=== PATIENT | male | born 1935 | race Caucasian/White ===

== ENCOUNTER → 2018-10-07 | Outpatient (CLI) | payer MEDICARE, OTHER ==
[~2018-10-07] MED LIST: HOLD METFORMIN - RECEIVED CONTRAST 20 ML VIAL IV SCH; IOHEXOL 350 MG/ML 100 ML (OMNIPAQUE 350) VIAL IV ONE; NS 100 ML (IVPB) BAG IV ONE; RT-ALBUTEROL SULF 2.5 MG/3 ML PRE-MIX VIAL INH ONE
[2018-10-07 09:26] LABS: BUN/CREATININE RATIO 14; CREATININE SERUM 1.09 MG/DL (0.60-1.30); GFR ESTIMATED > 60
--- NOTE | 2018-10-07 11:56 | Diagnostic Imaging Report ---
PROCEDURE: CT chest with contrast only. TECHNIQUE: Multiple contiguous axial images were obtained through the chest after administration of intravenous contrast. Auto Exposure Controls were utilized during the CT exam to meet ALARA standards for radiation dose reduction. INDICATION: Shortness of breath on exertion and productive cough. COMPARISON: No prior studies are available for comparison. FINDINGS: Postop changes of median sternotomy are noted. No axillary lymphadenopathy is seen. Mildly prominent mediastinal lymph nodes are present. Right paratracheal node measures 1.4 x 1.7 cm. No hilar lymphadenopathy is seen. Pulmonary arterial system does appear to be somewhat dilated. This could be on the basis of pulmonary arterial hypertension. Coronary arterial calcifications are noted. There is no pericardial or pleural fluid identified. Parenchymal evaluation does show some scarring versus infiltrate in the posterior right upper lobe. There is also some infiltrate in the left lower lobe suggestive of pneumonia. Right lower lobe appears to be clear. The upper abdomen is unremarkable. IMPRESSION: 1. Left lower lobe infiltrate suggestive of pneumonia. There is minimal infiltrate versus scarring or atelectasis in the posterior right upper lobe. Prominent lymph node in the mediastinum is seen which could be reactive. 2. Pulmonary arterial dilatation, perhaps on the basis of pulmonary hypertension. Dictated by: Dictated on workstation # [id number]
== END ==
LOC: RAD 08:50
PROVIDERS: ATTEND Nurse Practitioner Family
DX: J45.909 Unspecified asthma, uncomplicated (principal); I28.8 Other diseases of pulmonary vessels; Z98.890 Other specified postprocedural states
CPT/HCPCS: 36415; 71260; 82565; 84520; 94060; 94726; 94729

== ENCOUNTER → 2018-10-15 | Outpatient (CLI) | payer MEDICARE, OTHER ==
[~2018-10-15] MED LIST changes: +EZET10TA5 PO; +FEXO-46 PO; +FLUT1BLS IH; -HOLD METFORMIN - RECEIVED CONTRAST 20 ML VIAL IV SCH; -IOHEXOL 350 MG/ML 100 ML (OMNIPAQUE 350) VIAL IV ONE; +LEVO150T6 PO; +METO-370 PO; +MONT10TA24 PO; -NS 100 ML (IVPB) BAG IV ONE; +OMEP40CA36 PO; -RT-ALBUTEROL SULF 2.5 MG/3 ML PRE-MIX VIAL INH ONE
[2018-10-15 14:45] LABS: BASOPHILS # (AUTO) 0.1 10^3/uL (0.0-0.1); BASOPHILS % (AUTO) 1 % (0-10); EOSINOPHILS # (AUTO) 0.8 10^3/uL (0.0-0.3); EOSINOPHILS % (AUTO) 7 % (0-10); HEMATOCRIT 43 % (40-54); HEMOGLOBIN 14.6 G/DL (13.3-17.7); LYMPHOCYTES % (AUTO) 18 % (12-44); MEAN CORPUSCULAR HEMOGLOBIN 32 PG (25-34); MEAN CORPUSCULAR HGB CONC 34 G/DL (32-36); MEAN CORPUSCULAR VOLUME 94 FL (80-99); MEAN PLATELET VOLUME 8.8 FL (7.4-10.4); MONOCYTES # (AUTO) 0.9 X 10^3 (0.0-1.0); MONOCYTES % (AUTO) 8 % (0-12); NEUTROPHILS # (AUTO) 7.1 X 10^3 (1.8-7.8); NEUTROPHILS % (AUTO) 66 % (42-75); PLATELET COUNT 275 10^3/uL (130-400); RED CELL DISTRIBUTION WIDTH 13.9 % (10.0-14.5); WHITE BLOOD COUNT 10.8 10^3/uL (4.3-11.0)
== END ==
LOC: LAB 14:29
PROVIDERS: ATTEND Nurse Practitioner Family
DX: J45.909 Unspecified asthma, uncomplicated (principal); J47.9 Bronchiectasis, uncomplicated; J18.9 Pneumonia, unspecified organism; F17.211 Nicotine dependence, cigarettes, in remission
CPT/HCPCS: 36415; 85025

== ENCOUNTER 2018-10-19 06:26 | Outpatient (CLI) | payer MEDICARE, OTHER ==
[~2018-10-19] VITALS: Ht 175.3 cm; Wt 78.5 kg
[2018-10-19] MEDS ORDERED: OMEP40CA36 PO (11:10)
[2018-10-19] MEDS ORDERED: METO-370 PO (11:10)
[2018-10-19] MEDS ORDERED: FLUT1BLS IH (11:10)
[2018-10-19] MEDS ORDERED: LEVO150T6 PO (11:10)
[2018-10-19] MEDS ORDERED: FEXO-46 PO (11:10)
[2018-10-19] MEDS ORDERED: MONT10TA24 PO (11:10)
[2018-10-19] MEDS ORDERED: EZET10TA5 PO (11:10)
== END 2018-10-19 11:12 | disposition home or self-care (01) ==
LOC: PREOP 06:26
PROVIDERS: ATTEND Internal Medicine Critical Care Medicine
DX: Z01.818 Encounter for other preprocedural examination (principal)

== ENCOUNTER → 2019-01-19 | Outpatient (CLI) | payer MEDICARE, OTHER ==
[~2019-01-19] MED LIST changes: +CATHETER FLUSH 10 ML SYR IV PRN; +HOLD METFORMIN - RECEIVED CONTRAST 20 ML VIAL IV SCH; +IOHEXOL 350 MG/ML 100 ML (OMNIPAQUE 350) VIAL IV ONE; +NS 100 ML (IVPB) BAG IV ONE
[2019-01-19 11:34] LABS: BUN/CREATININE RATIO 11; CREATININE SERUM 1.07 MG/DL (0.60-1.30)
[2019-01-19 11:35] LABS: GFR ESTIMATED > 60
--- NOTE | 2019-01-19 16:01 | Diagnostic Imaging Report ---
PROCEDURE: CT chest with contrast only. TECHNIQUE: Multiple contiguous axial images were obtained through the chest after administration of intravenous contrast. Auto Exposure Controls were utilized during the CT exam to meet ALARA standards for radiation dose reduction. DATE: January 19, 2019. COMPARISON: Chest radiograph October 22, 2018. CT chest October 07, 2018. INDICATION: 83-year-old male, cough. History of pneumonia. Follow-up exam. FINDINGS: There is a pleurally based right upper lobe pulmonary nodule measuring 16 x 6 mm in size on axial image 20. This is a new finding since prior CT chest. There is also a peripheral and/or pleurally-based spiculated appearing right upper lobe pulmonary nodule on axial image 62 which measures 12 mm in size. This is also new since prior CT chest exam of October 07, 2018. There is pleural-based nodularity in the right middle lobe on axial image 86 which is also an interval change. There are predominantly wedge-shaped areas of consolidation in the right middle lobe with associated volume loss consistent with atelectasis and/or scarring. This is also present previously. There are prominent reticulonodular opacities in the lingula and left lower lobe on axial image 104 and adjacent sequential images. This is fairly similar in appearance to prior CT chest of October 07, 2018. There is nonspecific left lower lobe bronchial wall thickening. There is no peripheral honeycombing. There is no pneumothorax. There is no sizable pleural effusion. There is nonspecific small amount of dependent material within the trachea which may relate to mucus or debris. There is abnormally dilated main pulmonary artery diameter measuring up to 3.1 cm in diameter suggestive of pulmonary artery hypertension. There is no identified central pulmonary embolus. There are coronary artery calcifications and additional areas of atherosclerotic disease. There is no pericardial effusion. There is a right paratracheal lymph node on axial image 57 which measures 8 mm in short axis. There are subcentimeter short axis bilateral hilar lymph nodes. The right paratracheal lymph nodes on prior study have decreased in size. There is no abnormally enlarged axillary lymph node. There is a low-attenuation 6 mm right renal lesion on axial image 150 which is too small to characterize. Additional evaluation of the imaged portions of the upper abdomen is unremarkable. There are multilevel degenerative changes of the spine. There are median sternotomy wires. IMPRESSION: CT CHEST. 1. Persistent prominent reticulonodular opacities in the lingula and left lower lobe with unchanged appearance since October 07, 2018. These potentially could relate to infectious or inflammatory etiology. Malignant etiology considered significantly less likely. 2. New pleurally based and/or peripheral nodules in the right upper lobe as well as a peripheral area of pleural-based nodularity in the right middle lobe since October 07, 2018. The quick interval development would suggest against sites of primary malignancy although metastatic disease is in the differential diagnosis. The pleural-based abnormality would be unusual for infectious etiology. PET/CT and/or biopsy should be considered. 3. Findings suggesting pulmonary artery hypertension. 4. No current pathologically enlarged lymph node in the chest. Dictated by: Dictated on workstation # [id number]
== END ==
LOC: RAD 11:06
PROVIDERS: ATTEND Nurse Practitioner Family
DX: J45.909 Unspecified asthma, uncomplicated (principal); J47.9 Bronchiectasis, uncomplicated; J18.9 Pneumonia, unspecified organism; F17.211 Nicotine dependence, cigarettes, in remission; R91.8 Other nonspecific abnormal finding of lung field; Z98.890 Other specified postprocedural states
CPT/HCPCS: 36415; 71260; 82565; 84520

== ENCOUNTER → 2019-02-02 | Outpatient (CLI) | payer MEDICARE, OTHER ==
[~2019-02-02] MED LIST changes: -CATHETER FLUSH 10 ML SYR IV PRN; -HOLD METFORMIN - RECEIVED CONTRAST 20 ML VIAL IV SCH; -IOHEXOL 350 MG/ML 100 ML (OMNIPAQUE 350) VIAL IV ONE; -NS 100 ML (IVPB) BAG IV ONE
--- NOTE | 2019-02-02 14:18 | Diagnostic Imaging Report ---
INDICATION: Peripheral nodular opacities noted in the right upper and right middle lobes on prior CT chest. Study is performed for further evaluation. TECHNIQUE: Serum blood glucose level at the time of injection was 81 mg/dL. Patient was administered 12 mCi F-18 FDG intravenously in the right wrist, and PET imaging was performed from the top of the skull to mid thighs. Noncontrast CT was also performed for attenuation correction and anatomic correlation. COMPARISON: No prior PET study is available for comparison. Comparison is made with recent CT chest from 01/19/2019. FINDINGS: There is symmetric activity throughout the brain. Physiologic activity within the soft tissues of the neck is identified. The areas of pleural/subpleural density noted on recent CT chest in the right upper and right middle lobe do not demonstrate FDG avidity. Low-level activity in a right paratracheal lymph node is identified with SUV max of approximately 3.5. Short axis measurement is approximately 12 mm. This may be reactive. No hilar hypermetabolism is seen. No pulmonary parenchymal hypermetabolism is identified. Abdomen and pelvis demonstrate physiologic activity throughout the GI and tracts. No suspicious hypermetabolism is detected. IMPRESSION: Essentially unremarkable PET/CT study. The subpleural/pleural-based densities noted on recent CT chest in the right upper and right middle lobe are not hypermetabolic; therefore malignancy is unlikely. There is a probable reactive lymph node in a right paratracheal location. No other significant abnormality is detected. Dictated by: Dictated on workstation # [id number]
== END ==
LOC: RAD 10:30
PROVIDERS: ATTEND Nurse Practitioner Family
DX: R91.8 Other nonspecific abnormal finding of lung field (principal); J47.9 Bronchiectasis, uncomplicated; J44.9 Chronic obstructive pulmonary disease, unspecified; F17.211 Nicotine dependence, cigarettes, in remission

== ENCOUNTER 2020-10-22 11:26 | Day surgery (SDC) | payer MEDICARE, OTHER ==
[~2020-10-22] VITALS: Ht 175.3 cm; Wt 78.1 kg
[2020-10-22] VITALS (9 sets, daily range): BP systolic 125–161; BP diastolic 65–86
[~2020-10-22 11:26] MED LIST changes: +EZET10TA17 PO; -EZET10TA5 PO; -METO-370 PO; +METO50TA7 PO; -MONT10TA24 PO; +MONT10TA32 PO; -OMEP40CA36 PO; +OMEP40CA6 PO
--- OUTSIDE RECORDS SUMMARY | 2020-10-22 11:32 | XMS REPORT ---
Author Author Gilbert Foote Organization [facility] Address [address] [place], [place] [id number] Care Team Providers Care Music Industry Intern Name Role Phone Danny Foote PCP Danny Foote PreferredProvider Allergies and Adverse Reactions Name Reaction Notes SULFA (SULFONAMIDES) ketoconazole Advair Diskus SORE THROAT Celebrex Crestor MUSCLE PAIN Lipitor MUSCLE PAIN pravastatin MUSCLE PAIN prednisone MUSCLE CRAMPS, SKIN TINGLING Zocor MUSCLE PAIN Plan of Treatment Planned Activity Comments Planned Date Planned Time Plan/Goal B12 binding protein measurement 05/05/2019 12:00 AM CBC W/ AUTO DIFF (RFLX MAN DIFF IF IND). 09/26/2020 12:00 AM CMP 09/26/2020 12:00 AM T4 FREE 09/26/2020 12:00 AM TSH 09/26/2020 12:00 AM IRON PANEL 09/26/2020 12:00 AM IRON PANEL 09/26/2020 12:00 AM IRON PANEL 09/26/2020 12:00 AM May 17, 2016 at 9:45am Pt request. COPD Medications Active Name Start Date Estimated Completion Date SIG Co mments aspirin 81 mg oral tablet,delayed release (DR/EC) take 1 tablet (81 mg) by oral route once daily Ksqipddjsty-Xpmun-JTM Complex 347-459-07-0.5 mg oral tablet 02/01 take 1 tablet by oral route daily cyanocobalamin (vitamin B-12) 1,000 mcg oral tablet take 1 tablet by oral route daily Symbicort 80-4.5 mcg/actuation inhalation HFA aerosol inhaler inhale 2 puffs by inhalation route 2 times per day in the morning and evening elderberry fruit and flower 460-115 mg oral capsule take 1 capsule by oral route daily coenzyme Q10 10 mg oral capsule take 1 ca psule by oral route daily Fleet Enema 19-7 gram/118 mL rectal enema 09/13/2019 insert by rectal route 3-4 times a day as needed for constipation. Please send instructions with patient. levothyroxine 75 mcg oral tablet 02/10/2020 02/04/2021 TAKE ONE TABLET BY MOUTH EVERY DAY FOR 90 DAYS Zetia 10 mg oral tablet 04/18/2020 04/13/2021 take 1 t ablet (10 mg) by oral route once daily for 90 days metoprolol succinate 50 mg oral tablet extended release 24 h r 05/16/2020 02/10/2021 TAKE 1/2 TABLET BY MOUTH EVERY DAY FOR 90 DAYS trazodone 50 mg tablet 07/06/2020 01/02/2021 take ONE- HALF TO TWO tablets BY MOUTH at bedtime ferrous sulfate 325 mg (65 mg iron) tablet take 1 tablet (325 mg) by oral route once daily albuterol sulfate 90 mcg/actuation inhalation HFA aerosol inhale r 08/03/2020 inhale 2 puffs (180 mcg) by inhalation route every 4 hours as needed for shortness of breath Breo Ellipta 200 mcg-25 mcg/dose powder for inhalation 08/23/2020 08/18/2021 inhale ONE PUFF BY MOUTH ONCE DAILY fexofenadine 180 mg tablet 09/07/2020 10/07/2020 TAKE ONE TABLET BY MOUTH ONCE DAILY montelukast 10 mg oral tablet 09/25/2020 ta ke 1 tablet (10 mg) by oral route once daily in the evening ipratropium-albuterol 0.5 mg-3 mg(2.5 mg base)/3 mL inhalation solution for nebulization 09/26/2020 05/24/2021 inhale 3 milliliters by nebulization route 3 times per day PRN for shortness of breath for 30 days omeprazole 40 mg oral capsule,delayed release(DR/EC) 09/26/2020 09/21/2021 TAKE ONE CAPSULE BY MOUTH EVERY DAY Name Start Date Expiration Date SIG Comments cyanocobalamin (vitamin B-12) 1,000 mcg/mL injection solution inject 0.1 milliliter (100 mcg) by intramuscular route once a month doxycycline hyclate Oral 100 mg Oral capsule BID testosterone cypionate Intramuscular 200 mg/mL Intramuscular Oil amiodarone 400 mg oral tablet ta ke 1 tablet (400 mg) by oral route once daily Restoril 15 mg oral capsule take 1 capsule (15 mg) by oral route once daily at bedtime as needed Spiriva with HandiHaler 18 mcg inhalation capsule, w/inhalation device inhale 1 capsule (18 mcg) by inhalation route once daily amoxicillin-pot clavulanate 875-125 mg oral tablet 07/13/2014 07/23/2014 take 1 tablet by oral route every 12 hours for 10 days Levaquin 500 mg oral tablet 03/09/2016 03/16/2016 take 1 tablet (500 mg) by oral route once daily for 7 days Augmentin 875-125 mg oral tablet 05/08/2016 05/15/2016 take 1 tablet by oral route every 12 hours for 7 days prednisone 50 mg oral tablet 05/08/2016 05/13/2016 michael e 1 tablet by oral route daily for 5 days Start in the AM azithromycin 250 mg oral tablet 07/18/2017 07/23/2017 take 2 tablets (500 mg) by oral route once daily for 1 day then 1 tablet (250 mg) by oral route once daily for 4 days doxycycline hyclate 100 mg oral capsule 02/05/2018 02/16/20 18 take 1 capsule (100 mg) by oral route every 12 hours for 10 days Dulera 200-5 mcg/actuation Inhalation HFA Aerosol Inhaler 018 03/05/2018 inhale 2 puffs by inhalation route 2 times per day in the morning and evening for 28 days prednisone 20 mg oral tablet 02/05/2018 02/10/2018 michael e 2 tablets (40 mg) by oral route once daily for 5 days starting tomorrow. Augmentin 875-125 mg oral tablet 02/01/2019 02/22/2019 take 1 tablet by oral route every 12 hours for 7 days Tamiflu 75 mg oral capsule 03/02/2019 03/09/2019 take 1 capsule (75 mg) by oral route once daily for 7 days Discontinued Name Start Date Discontinued Date SIG Comments fluvastatin 40 mg oral capsule 02/05/2018 t kim 1 capsule (40 mg) by oral route once daily in the evening not on patient list I was given ipratropium-albuterol Inhalation 0.5 mg- 3 mg(2.5 mg base)/3 mL Inhalation Solution for Nebulization 02/05/2018 inhale 3 renetta liters by nebulization route as needed not on patient list is was given omeprazole 40 mg oral capsule,delayed release(DR/EC) 02/01/2019 take 1 capsule (40 mg) by oral route 2 times per day before a meal potassium iodide 65 mg/mL oral drops 02/05/2018 take 1 drop by oral route 3 times a day not on patient list i was given Symbicort inhalation 02/01/2019 Co Q-10 oral 02/05/2018 not on list i was given Tessalon Perles 100 mg oral capsule 07/18/2017 02/05/2018 take 1 capsule (100 mg) by oral route 3 times per day as needed for cough vitamin B complex oral tablet 02/05/2018 02/01/2019 ta ke 1 tablet by oral route daily Iron (dried) 160 mg (50 mg iron) oral tablet extended release 04/18/2020 ezetimibe 10 mg oral tablet 03/09/2019 04/18/2020 TAKE 1 TABLET BY MOUTH ONCE A DAY metoprolol tartrate 50 mg oral tablet 01/18/2020 take 1/2 tablet (50 mg) by oral route daily Problem List Description Status Onset Coronary artery disease Active Gastrointestinal Bleed Active Diverticulosis of colon Active Hypercholesterolemia Active Hypertension Active COPD (chronic obstructive pulmonary disease) Active 02/01/2019 HLD (hyperlipidemia) Active 05/12/2019 Vitamin D deficiency Active 05/12/2019 Anemia Active 05/12/2019 Epistaxis, recurrent Active 05/12/2019 Vital Signs Date Time BP-Sys(mm[Hg] BP-[place](mm[Hg]) HR(bpm) RR(rpm) Temp WT HT HC BMI BSA BMI Percentile O2 Sat(%) 09/26/2020 11:02:00 AM 124 mm[Hg] 50 mm[Hg] 63 {beats}/min 18 rpm 97.7 F 178 lbs 69 in 26.2857 kg/m2 1.9826 m2 94 % 08/03/2020 11:29:00 AM 122 mm[Hg] 64 mm[Hg] 69 {beats}/min 18 rpm 97.9 F 176 lbs 69 in 25.99 kg/m2 1.97 m2 96 % 07/03/2020 11:08:00 AM 120 mm[Hg] 62 mm[Hg] 65 {beats}/min 18 rpm 98.6 F 176 lbs 69 in 25.9904 kg/m2 1.9714 m2 96 % 01/18/2020 1:11:00 PM 118 mm[Hg] 58 mm[Hg] 65 {beats}/min 18 rpm 98.6 F 178 lbs 69 in 26.29 kg/m2 1.98 m2 96 % 07/12/2019 12:21:00 PM 97 {beats}/min 18 rpm 98.1 F 98 % 05/11/2019 11:56:00 AM 118 mm[Hg] 66 mm[Hg] 70 {beats}/min 18 rpm 97.9 F 176 lbs 69 in 25.99 kg/m2 1.97 m2 97 % 02/01/2019 3:14:00 PM 120 mm[Hg] 62 mm[Hg] 65 {beats}/min 16 rpm 97.9 F 173 lbs 69 in 25.5474 kg/m2 1.9546 m2 95 % 02/05/2018 1:35:00 PM 118 mm[Hg] 62 mm[Hg] 80 {beats}/min 20 rpm 98.1 F 176 lbs 69 in 25.99 kg/m2 1.97 m2 94 % 07/18/2017 7:30:00 PM 138 mm[Hg] 70 mm[Hg] 73 {beats}/min 18 rpm 97.5 F 174 lbs 69 in 25.695 kg/m2 1.9602 m2 94 % 05/08/2016 5:17:00 PM 140 mm[Hg] 60 mm[Hg] 102 {beats}/min 100.9 F 173 lbs 69 in 25.55 kg/m2 1.95 m2 92 % 03/09/2016 1:22:00 PM 122 mm[Hg] 64 mm[Hg] 102 {beats}/min 18 rpm 100.5 F 184 lbs 69 in 27.1718 kg/m2 2.0157 m2 94 % 07/13/2014 5:47:00 PM 140 mm[Hg] 60 mm[Hg] 76 {beats}/min 18 rpm 96 F 176.375 lbs 69 in 26.05 kg/m2 1.97 m2 95 % 10/13/2012 10:53:00 AM 118 mm[Hg] 50 mm[Hg] 61 {beats}/min 20 rpm 96.8 F 180 lbs 69 in 26.5811 kg/m2 1.9937 m2 96 % Social History Name Description Comments Alcohol Never Tobacco Former smoker History of Procedures Date Ordered Description Order Status 03/09/2016 12:00 AM THER/PROPH/DIAG INJ SC/IM Reviewed 03/09/2016 12:00 AM Decadron 4mg Injection Reviewed 03/09/2016 12:00 AM Depo Medrol 40mg Injection, [facility] Medicare Reviewed 12/02/2016 12:00 AM REMOVE IMPACTED EAR WAX UNI Reviewed 07/18/2017 12:00 AM THER/PROPH/DIAG INJ SC/IM Reviewed 07/18/2017 12:00 AM Decadron 4mg Injection Reviewed 02/05/2018 12:00 AM AIRWAY INHALATION TREATMENT Reviewed 02/05/2018 12:00 AM THER/PROPH/DIAG INJ SC/IM Reviewed 02/05/2018 12:00 AM Solu-Medrol, Up to [address] [facility]# [id number] 7-27 Reviewed 12/30/2018 12:00 AM Prostate Cancer Screening Returned 12/30/2018 12:00 AM COMPLETE CBC W/AUTO DIFF WBC Returned 12/30/2018 12:00 AM LIPID PANEL Returned 12/30/2018 12:00 AM COMPREHEN METABOLIC PANEL Returned 05/05/2019 12:00 AM ASSAY THYROID STIM HORMONE Reviewed 05/05/2019 12:00 AM ASSAY OF FREE THYROXINE Reviewed 05/05/2019 12:00 AM COMPLETE CBC W/AUTO DIFF WBC Reviewed 05/05/2019 12:00 AM COMPREHEN METABOLIC PANEL Reviewed 05/05/2019 12:00 AM COLLECTION VENOUS BLOOD VENIPUNCTURE Rev iewed 05/05/2019 12:00 AM ASSAY OF IRON Reviewed 05/05/2019 12:00 AM IRON BINDING TEST Reviewed 05/05/2019 12:00 AM VITAMIN D 25 HYDROXY Reviewed 07/12/2019 12:00 AM THERAPEUTIC PROPHYLACTIC/DX INJECTION GRIFFIN BQ/IM Reviewed 07/12/2019 12:00 AM Depo-Medrol 80mg Injection, [facility] Medicare Reviewed 07/12/2019 12:00 AM Decadron 4mg Injection, [facility] Medicare Rev iewed 12/07/2019 12:00 AM INFLUENZA VACCINE SPLT PRSRV FREE INC AN TIGEN IM Reviewed 12/07/2019 12:00 AM THER/PROPH/DIAG INJ SC/IM Reviewed 01/04/2020 12:00 AM COMPLETE CBC W/AUTO DIFF WBC Returned 01/04/2020 12:00 AM COMPREHEN METABOLIC PANEL Returned 01/04/2020 12:00 AM VITAMIN D 25 HYDROXY Returned 01/04/2020 12:00 AM COLLECTION VENOUS BLOOD VENIPUNCTURE Rev iewed 04/11/2020 12:00 AM COMPLETE CBC W/AUTO DIFF WBC Returned 04/11/2020 12:00 AM COMPREHEN METABOLIC PANEL Returned 04/11/2020 12:00 AM ASSAY OF FREE THYROXINE Returned 04/11/2020 12:00 AM ASSAY THYROID STIM HORMONE Returned 04/11/2020 12:00 AM LIPID PANEL Returned 04/11/2020 12:00 AM PSA (Screening) Returned 04/11/2020 12:00 AM COLLECTION VENOUS BLOOD VENIPUNCTURE Rev iewed 06/22/2020 12:00 AM COMPLETE CBC W/AUTO DIFF WBC Returned 06/22/2020 12:00 AM COMPREHEN METABOLIC PANEL Returned 06/22/2020 12:00 AM LIPID PANEL Returned 06/22/2020 12:00 AM ASSAY OF FREE THYROXINE Returned 06/22/2020 12:00 AM ASSAY THYROID STIM HORMONE Returned 06/22/2020 12:00 AM COLLECTION VENOUS BLOOD VENIPUNCTURE Rev iewed 07/03/2020 12:00 AM COMPLETE CBC W/AUTO DIFF WBC Returned 07/03/2020 12:00 AM ASSAY OF IRON Returned 07/03/2020 12:00 AM IRON BINDING TEST Returned 07/03/2020 12:00 AM ASSAY OF TRANSFERRIN Returned 07/03/2020 12:00 AM COLLECTION VENOUS BLOOD VENIPUNCTURE Rev iewed 07/03/2020 12:33 PM ELECTROCARDIOGRAM TRACING Reviewed 09/19/2020 12:00 AM COMPLETE CBC W/AUTO DIFF WBC Returned 09/19/2020 12:00 AM COMPREHEN METABOLIC PANEL Returned 09/19/2020 12:00 AM ASSAY OF IRON Returned 09/19/2020 12:00 AM IRON BINDING TEST Returned 09/19/2020 12:00 AM ASSAY OF TRANSFERRIN Returned 09/19/2020 12:00 AM COLLECTION VENOUS BLOOD VENIPUNCTURE Rev iewed Results Summary Date and Description Results 02/18/2018 12:05 PM Falls in last 6 months? No U nsteady or worry about falling? No Fall Risk Assessment Not At Risk 05/05/2019 8:15 AM VITAMIN D 24.8 IRON TOTAL 68 Transferrin 219 TIBC Calculation 274 %Saturation Calc 25 WBC 8.1 RBC 4.50 HGB 14.70 g/dLHCT 43.40 %MCV 96.0 fLMCH 32.70 pgMCHC 33.90 g/dLRDW SD 45 fLRDW CV 12.80 %MPV 9.90 fLPLT 212 x10E3/uLNRBC# 0.00 NRBC% 0.0 %NEUT 61.7 %LYMP 21.5 %MONO 8.7 %EOS 7.1 %BASO 0.9 #NEUT 5.02 #LYMP 1.75 #MONO 0.71 #EOS 0.58 #BASO 0.07 MANUAL DIFF NOT IND TSH 0.61 GLUCOSE 91 SODIUM 138 POTASSIUM 4.2 CHLORIDE 107.0 mmol/LCO2 25 BUN 14.0 mg/dLCREATININE 1.020 mg/dLSGOT/AST 23 SGPT/ALT 15 ALK PHOS 72 TOTAL PROTEIN 7.0 ALBUMIN 4.4 TOTAL BILI 0.5 CALCIUM 8.90 mg/dLAGE 83 GFR NonAA 70 GFR AA 85 eGFR 70 mL/min/1.73meGFR AA* >60 mL/min/1.73mFREE T4 1.18 History Of Immunizations Name Date Admin Mfg Name Mfg Code Trade Name Lot# Route Inj Vis Given Vis Pub CVX Influenza 12/07/2019 sanofi pasteur PMC FLUZONE [id number] Intramuscular Right Upper Arm 12/07/2019 10/15/2018 135 History of Past Illness Name Date of Onset Comments Diverticulosis of colon Coronary artery disease Hypertension Hypercholesterolemia Gastrointestinal Bleed Bronchiectasis H/O polycythemia Carotid artery disease Recurrent epistaxis Chronic cough Psoriasis Valvular disease Paroxysmal atrial fibrillation Aortic stenosis CAD (coronary artery disease) COPD (chronic obstructive pulmonary disease) Degenerative joint disease Hyperlipidemia Panlobular emphysema Hypothyroidism due to acquired atrophy of thyroid COPD (chronic obstructive pulmonary disease) 02/01/2019 HLD (hyperlipidemia) 05/12/2019 Vitamin D deficiency 05/12/2019 Anemia 05/12/2019 Epistaxis, recurrent 05/12/2019 Gastric mucosal hypertrophy with hemorrhage Oct 13 2012 11:0 5AM Diverticulosis of the colon Oct 13 2012 11:05AM Maxillary Sinusitis, Acute Jul 13 2014 5:54PM Viral illness Mar 09 2016 1:24PM COPD exacerbation Mar 09 2016 1:24PM COPD exacerbation May 08 2016 5:21PM Bilateral impacted cerumen Dec 02 2016 3:40PM COPD exacerbation Jul 18 2017 7:40PM COPD exacerbation Feb 05 2018 1:46PM Hypertension Dec 30 2018 3:48PM Coronary artery disease Dec 30 2018 3:48PM Hypercholesterolemia Dec 30 2018 3:48PM Prostate cancer screening Dec 30 2018 3:48PM [place] (hard of hearing) Feb 01 2019 3:17PM Weak Feb 01 2019 3:17PM HLD (hyperlipidemia) Feb 01 2019 3:17PM Hypertension Feb 01 2019 3:17PM COPD (chronic obstructive pulmonary disease) Feb 01 2019 3: 17PM SOB (shortness of breath) Feb 01 2019 3:17PM Hypothyroid May 05 2019 8:20AM HTN (hypertension) May 05 2019 8:20AM COPD (chronic obstructive pulmonary disease) May 05 2019 8: 20AM B12 deficiency May 05 2019 8:20AM Vitamin D deficiency May 05 2019 8:20AM Anemia May 05 2019 8:20AM Hypertension May 11 2019 7:08PM Hyperlipemia May 11 2019 7:08PM SOB (shortness of breath) May 11 2019 7:08PM COPD (chronic obstructive pulmonary disease) May 11 2019 7: 08PM COPD (chronic obstructive pulmonary disease) May 11 2019 11: 58AM Hypercholesterolemia May 11 2019 11:58AM Hypertension May 11 2019 11:58AM [place] (hard of hearing) May 11 2019 11:58AM Gait abnormality May 11 2019 11:58AM HTN (hypertension) May 11 2019 11:58AM HLD (hyperlipidemia) May 11 2019 11:58AM Anemia May 11 2019 11:58AM Vitamin D deficiency May 11 2019 11:58AM Epistaxis, recurrent May 11 2019 11:58AM COPD (chronic obstructive pulmonary disease) Jul 12 2019 12: 21PM HLD (hyperlipidemia) Jul 12 2019 12:21PM Vitamin D deficiency Jul 12 2019 12:21PM Hypertension Jul 12 2019 12:21PM Asthma Jul 12 2019 12:21PM Allergic rhinitis; due to pollen Jul 12 2019 1:06PM Allergic rhinitis; due to other allergen Jul 12 2019 1:06PM Need for immunization against influenza Dec 07 2019 11:09AM HLD (hyperlipidemia) Jan 18 2020 1:13PM COPD (chronic obstructive pulmonary disease) Jan 18 2020 1: 13PM Vitamin D deficiency Jan 18 2020 1:13PM Anemia Jan 18 2020 1:13PM Coronary artery disease Jan 18 2020 1:13PM Hypertension Jan 18 2020 1:13PM CAD (coronary artery disease) Mar 29 2020 11:07AM Anemia Mar 29 2020 11:07AM CKD (chronic kidney disease) Mar 29 2020 11:07AM Hypothyroid Mar 29 2020 11:07AM Prostate cancer screening Mar 29 2020 11:07AM COPD (chronic obstructive pulmonary disease) Apr 18 2020 11: 11AM Hard of hearing Apr 18 2020 11:11AM HLD (hyperlipidemia) Apr 18 2020 11:11AM Epistaxis, recurrent Apr 18 2020 11:11AM Hypercholesterolemia Apr 18 2020 11:11AM Hypertension Apr 18 2020 11:11AM Anemia May 04 2020 1:00PM HLD (hyperlipidemia) May 04 2020 1:00PM Hypertension May 04 2020 1:00PM Hypothyroid May 04 2020 1:00PM Anemia Jul 03 2020 12:33PM HLD (hyperlipidemia) Jul 03 2020 11:09AM COPD (chronic obstructive pulmonary disease) Jul 03 2020 11: 09AM Anemia Jul 03 2020 11:09AM Epistaxis, recurrent Jul 03 2020 11:09AM Coronary artery disease Jul 03 2020 11:09AM Gastrointestinal Bleed Jul 03 2020 11:09AM Hypertension Jul 03 2020 11:09AM Insomnia Jul 03 2020 11:09AM Palpitations Jul 03 2020 11:09AM HLD (hyperlipidemia) Aug 03 2020 11:31AM COPD (chronic obstructive pulmonary disease) Aug 03 2020 11: 31AM Anemia Aug 03 2020 11:31AM Epistaxis, recurrent Aug 03 2020 11:31AM Coronary artery disease Aug 03 2020 11:31AM Gastrointestinal Bleed Aug 03 2020 11:31AM Hypertension Aug 03 2020 11:31AM Anemia Aug 09 2020 11:53AM COPD (chronic obstructive pulmonary disease) Aug 09 2020 11: 53AM HLD (hyperlipidemia) Aug 09 2020 11:53AM Iron deficiency Aug 09 2020 11:53AM Hypertension Sep 28 2020 5:30PM Anemia Sep 28 2020 5:30PM Hypothyroid Sep 28 2020 5:30PM Medication management Sep 28 2020 5:30PM Payers Insurance Name Company Name Plan Name Plan Number Policy Number [place] Group Number Start Date Medicare RHC Medicare RHC [id number] N/ A [employer] ns Co [id number] N/A Medicare RHC Medicare RHC [id number] N/A Medicare Part A Medicare - Lab/Xray [id number] N/A Medicare RHC Medicare RHC [id number] N/ A Medicare Part B Medicare Of [place] [id number] N/A History of Encounters Visit Date Visit Type Provider 09/26/[address] Danny Foote DO 09/19/2020 Laboratory Samia Johnson INSTRUMENT LENS INSPECTOR 08/03/[address] Danny Foote DO 07/03/[address] Danny Foote DO 06/22/2020 Laboratory Stephanie DÍAZ RN 04/18/[address] Danny Foote DO 04/11/2020 Laboratory Samia Johnson INSTRUMENT LENS INSPECTOR 01/18/[address] Danny Foote DO 01/04/2020 Laboratory Samia Johnson INSTRUMENT LENS INSPECTOR 12/07/2019 Nurse visit Samia Johnson INSTRUMENT LENS INSPECTOR 07/12/[address] Danny Foote DO 05/11/[address] Danny Foote DO 05/05/2019 Laboratory Hafsa Rand INSTRUMENT LENS INSPECTOR 02/01/[address] Danny Foote DO 04/11/2018 Hospital Carlos Eid MD 02/05/2018 Office visit Wanda DÍAZ RN 07/18/2017 Office visit April Felder APR N 12/02/2016 Office visit ASAF KYLE 05/08/2016 Office visit April Felder APR N 03/09/2016 Office visit Roxanne Banks INSTRUMENT LENS INSPECTOR 07/13/2014 Office visit China Saravia INSTRUMENT LENS INSPECTOR 10/13/2012 Office visit Asaf Bañuelos MD 10/06/2012 Hospital Asaf Bañuelos MD 10/05/2012 [facility] Asaf Bañuelos MD 09/26/2012 [facility] DO
--- OUTSIDE RECORDS SUMMARY | 2020-10-22 11:32 | XMS REPORT ---
Author Gilbert Harris Organization [facility] Address [address] [place], [place] [id number] Care Team Providers Care Forest And Conservation Worker Name Role Phone Samia Johnson PCP Danny Foote PreferredProvider Allergies and Adverse Reactions Name Reaction Notes SULFA (SULFONAMIDES) ketoconazole Advair Diskus SORE THROAT Celebrex Crestor MUSCLE PAIN Lipitor MUSCLE PAIN pravastatin MUSCLE PAIN prednisone MUSCLE CRAMPS, SKIN TINGLING Zocor MUSCLE PAIN Plan of Treatment Planned Activity Comments Planned Date Planned Time Plan/Goal B12 binding protein measurement 05/05/2019 12:00 AM CBC W/ AUTO DIFF (RFLX MAN DIFF IF IND). 09/19/2020 12:00 AM CMP 09/19/2020 12:00 AM IRON PANEL 09/19/2020 12:00 AM IRON PANEL 09/19/2020 12:00 AM IRON PANEL 09/19/2020 12:00 AM May 17, 2016 at 9:45am Pt request. COPD Medications Active Name Start Date Estimated Completion Date SIG Co mments aspirin 81 mg oral tablet,delayed release (DR/EC) take 1 tablet (81 mg) by oral route once daily Aqzitcoeejh-Qbhfi-OIK Complex [id number] mg oral tablet 02/01 take 1 tablet by oral route daily ipratropium-albuterol 0.5 mg-3 mg(2.5 mg base)/3 mL inhalation solution for nebulization inhale 3 milliliters by nebulization route 3 times per day PRN for shortness of breath cyanocobalamin (vitamin B-12) 1,000 mcg oral tablet [...] BY MOUTH EVERY DAY FOR 90 DAYS omeprazole 40 mg oral capsule,delayed release(DR/EC) 03/09/2020 06/02/2021 TAKE ONE CAPSULE BY MOUTH EVERY DAY montelukast 10 mg oral tablet 03/16/2020 ta ke 1 tablet (10 mg) by oral route once daily in the evening Zetia 10 mg oral tablet 04/18/2020 04/13/2021 [...] TAKE ONE TABLET BY MOUTH ONCE DAILY Name Start Date Expiration Date SIG Comments [...] hyclate 100 mg oral capsule 02/05/2018 02/16/20 take 1 capsule (100 mg) by oral [...] HC BMI BSA BMI Percentile O2 Sat(%) 08/03/2020 11:29:00 AM 122 mm[Hg] 64 mm[Hg] 69 {beats}/min 18 rpm 97.9 F 176 lbs 69 in 25.9904 kg/m2 1.9714 m2 96 % 07/03/2020 11:08:00 AM 120 mm[Hg] 62 mm[Hg] 65 {beats}/min 18 rpm 98.6 F 176 lbs 69 in 25.99 kg/m2 1.97 m2 96 % 01/18/2020 1:11:00 PM 118 mm[Hg] 58 mm[Hg] 65 {beats}/min 18 rpm 98.6 F 178 lbs 69 in 26.2857 kg/m2 1.9826 m2 96 % 07/12/2019 12:21:00 PM 97 [...] 12:00 AM Solu-Medrol, Up to 125 Mg [facility]# 17561-542 7-27 Reviewed 12/30/2018 12:00 AM Prostate Cancer [...] Reviewed 07/12/2019 12:00 AM Depo-Medrol 80mg Injection, [facility] Medicare Reviewed 07/12/2019 12:00 AM Decadron 4mg Injection, [facility] Medicare Rev iewed 12/07/2019 12:00 AM INFLUENZA [...] PM ELECTROCARDIOGRAM TRACING Reviewed 09/19/2020 12:00 AM COLLECTION VENOUS BLOOD VENIPUNCTURE [...] CVX Influenza 12/07/2019 sanofi pasteur PMC FLUZONE [id number] Intramuscular Right Upper Arm 12/07/2019 10/15/2018 135 [...] Prostate cancer screening Dec 30 2018 3:48PM [place] (hard of hearing) Feb 01 2019 3:17PM [...] 2019 11:58AM Hypertension May 11 2019 11:58AM [place] (hard of hearing) May 11 2019 11:58AM [...] 11:53AM Iron deficiency Aug 09 2020 11:53AM Payers Insurance Name Company Name Plan Name Plan Number Policy Number [place] Group Number Start Date Medicare RHC Medicare RHC [id number] N/ A [employer] ns [employer] [id number] N/A Medicare RHC Medicare RHC [id number] N/A Medicare Part A Medicare - Lab/Xray [id number] N/A Medicare RHC Medicare RHC [id number] N/ A Medicare Part B Medicare Of [place] [id number] N/A History of Encounters Visit Date Visit Type Provider 09/19/2020 Laboratory Samia Johnson JIG GRINDER SET UP OPERATOR 08/03/[address] Danny Foote DO 07/03/[address] Danny Foote DO 06/22/2020 Laboratory Stephanie DÍAZ RN 04/18/[address] Danny Foote DO 04/11/2020 Laboratory Samia Johnson JIG GRINDER SET UP OPERATOR 01/18/[address] Danny Foote DO 01/04/2020 Laboratory Samia Johnson JIG GRINDER SET UP OPERATOR 12/07/2019 Nurse visit Samia Johnson JIG GRINDER SET UP OPERATOR 07/12/[address] Danny Foote DO 05/11/[address] Danny Foote DO 05/05/2019 Laboratory Hafsa Rand JIG GRINDER SET UP OPERATOR 02/01/[address] Danny Foote DO 04/11/2018 Hospital Carlos Eid MD 02/05/2018 Office visit Wanda DÍAZ RN 07/18/2017 Office visit April Felder APR N 12/02/2016 Office visit ASAF KYLE 05/08/2016 Office visit April Felder APR N 03/09/2016 Office visit Roxanne Banks JIG GRINDER SET UP OPERATOR 07/13/2014 Office visit China Saravia JIG GRINDER SET UP OPERATOR 10/13/2012 Office visit Asaf Bañuelos MD 10/06/2012 Hospital Asaf Bañuelos MD 10/05/2012 [facility] Asaf Bañuelos MD 09/26/2012 [facility]
--- OUTSIDE RECORDS SUMMARY | 2020-10-22 11:32 | XMS REPORT ---
Author Gilbert Harris Organization [facility] Address [address] [place], [place] [id number] Care Team Providers Care Web Weaver Name Role Phone Samia Johnson PCP Danny [...] (81 mg) by oral route once daily Wufyoiagzfv-Xdkce-SXH Complex 198-403-17-0.5 mg oral tablet 02/01 take 1 tablet [...] 12:00 AM Solu-Medrol, Up to 125 Mg [facility]# [id number] 7-27 Reviewed 12/30/2018 12:00 AM Prostate Cancer [...] CVX Influenza 12/07/2019 sanofi pasteur PMC FLUZONE [id number] Intramuscular Right Upper Arm 12/07/2019 10/15/2018 135 [...] Prostate cancer screening Dec 30 2018 3:48PM [place] (hard of hearing) Feb 01 2019 3:17PM [...] 2019 11:58AM Hypertension May 11 2019 11:58AM [place] (hard of hearing) May 11 2019 11:58AM [...] Number Start Date Medicare RHC Medicare RHC [id number] N/ A [employer] [place] [employer] [id number] N/A Medicare RHC Medicare RHC [id number] N/A Medicare Part A Medicare - Lab/Xray [id number] N/A Medicare RHC Medicare RHC [id number] N/ A Medicare Part B Medicare Of [place] [id number] N/A History of Encounters Visit Date Visit Type Provider 09/19/2020 Laboratory Samia Johnson PRIZE COORDINATOR 08/03/[address] Danny Foote DO 07/03/[address] Danny Foote DO 06/22/2020 Laboratory Stephanie DÍAZ RN 04/18/[address] Danny Foote DO 04/11/2020 Laboratory Samia Johnson PRIZE COORDINATOR 01/18/[address] Danny Foote DO 01/04/2020 Laboratory Samia Johnson PRIZE COORDINATOR 12/07/2019 Nurse visit Samia Johnson PRIZE COORDINATOR 07/12/[address] Danny Foote DO 05/11/[address] Danny Foote DO 05/05/2019 Laboratory Hafsa Rand PRIZE COORDINATOR 02/01/[address] Danny Foote DO 04/11/2018 Hospital Carlos Eid MD 02/05/2018 Office visit Wanda DÍAZ RN 07/18/2017 Office visit April Felder APR N 12/02/2016 Office visit ASAF KYLE 05/08/2016 Office visit April Felder APR N 03/09/2016 Office visit Roxanne Banks PRIZE COORDINATOR 07/13/2014 Office visit China Saravia PRIZE COORDINATOR 10/13/2012 Office visit Asaf Bañuelos MD 10/06/2012 Hospital Asaf Bañuelos MD 10/05/2012 [facility] Asaf Bañuelos MD 09/26/2012 [facility]
--- OUTSIDE RECORDS SUMMARY | 2020-10-22 11:32 | XMS REPORT ---
Author Gilbert Harris Organization [facility] Address [address] [place], [place] [id number] Care Team Providers Care Um Rn Name Role Phone Samia Johnson PCP Danny [...] (81 mg) by oral route once daily Obmjtgznfor-Rwtec-BJE Complex [id number] mg oral tablet 02/01 take 1 tablet [...] AM Solu-Medrol, Up to 125 Mg [facility]# [id number] 7-27 Reviewed 12/30/2018 12:00 AM Prostate Cancer [...] iewed 07/03/2020 12:33 PM ELECTROCARDIOGRAM TRACING Reviewed Results Summary Date and Description Results 02/18/2018 [...] CVX Influenza 12/07/2019 sanofi pasteur PMC FLUZONE [id number] Intramuscular Right Upper Arm 12/07/2019 10/15/2018 135 [...] Prostate cancer screening Dec 30 2018 3:48PM [place] (hard of hearing) Feb 01 2019 3:17PM [...] 2019 11:58AM Hypertension May 11 2019 11:58AM [place] (hard of hearing) May 11 2019 11:58AM [...] Number Start Date Medicare RHC Medicare RHC [id number] N/ A [employer] [id number] N/A Medicare RHC Medicare RHC [id number] N/A Medicare Part A Medicare - Lab/Xray [id number] N/A Medicare RHC Medicare RHC [id number] N/ A Medicare Part B Medicare Of [place] [id number] N/A History of Encounters Visit Date Visit Type Provider 09/19/2020 Laboratory Samia Johnson UTILITY WORKER 08/03/[address] Danny Foote DO 07/03/[address] Danny Foote DO 06/22/2020 Laboratory Stephanie DÍAZ RN 04/18/[address] Danny Foote DO 04/11/2020 Laboratory Samia Johnson UTILITY WORKER 01/18/[address] Danny Foote DO 01/04/2020 Laboratory Samia Johnson UTILITY WORKER 12/07/2019 Nurse visit Samia Johnson UTILITY WORKER 07/12/[address] Danny Foote DO 05/11/[address] Danny Foote DO 05/05/2019 Laboratory Hafsa Rand UTILITY WORKER 02/01/[address] Danny Foote DO 04/11/2018 Hospital Carlos Eid MD 02/05/2018 Office visit Wanda DÍAZ RN 07/18/2017 Office visit April Felder APR N 12/02/2016 Office visit ASAF KYLE 05/08/2016 Office visit April Felder APR N 03/09/2016 Office visit Roxanne Banks UTILITY WORKER 07/13/2014 Office visit China Saravia UTILITY WORKER 10/13/2012 Office visit Asaf Bañuelos MD 10/06/2012 Hospital Asaf Bañuelos MD 10/05/2012 [facility] Asaf Bañuelos MD 09/26/2012 [facility]
--- OUTSIDE RECORDS SUMMARY | 2020-10-22 11:32 | XMS REPORT ---
Author Author Gilbert Foote Organization [facility] Address [address] [place], [place] [id number] Care Team Providers Care Boat Canvas Maker Installer Name Role Phone Danny Foote PCP Danny [...] (81 mg) by oral route once daily Ktkdvlzgnvx-Iekay-VJI Complex [id number] mg oral tablet 02/01 take 1 tablet [...] 12:00 AM Solu-Medrol, Up to 125 Mg [facility]# [id number] 7-27 Reviewed 12/30/2018 12:00 AM Prostate Cancer [...] Reviewed 07/12/2019 12:00 AM Depo-Medrol 80mg Injection, [facility] Medicare Reviewed 07/12/2019 12:00 AM Decadron 4mg Injection, [facility] Medicare Rev iewed 12/07/2019 12:00 AM INFLUENZA [...] CVX Influenza 12/07/2019 sanofi pasteur PMC FLUZONE [id number] Intramuscular Right Upper Arm 12/07/2019 10/15/2018 135 [...] Prostate cancer screening Dec 30 2018 3:48PM [place] (hard of hearing) Feb 01 2019 3:17PM [...] 2019 11:58AM Hypertension May 11 2019 11:58AM [place] (hard of hearing) May 11 2019 11:58AM [...] Number Start Date Medicare RHC Medicare RHC [id number] N/ A [employer] [id number] N/A Medicare RHC Medicare RHC [id number] N/A Medicare Part A Medicare - Lab/Xray [id number] N/A Medicare RHC Medicare RHC [id number] N/ A Medicare Part B Medicare Of [place] [id number] N/A History of Encounters Visit Date Visit Type Provider 09/26/[address] Danny Foote DO 09/19/2020 Laboratory Samia Johnson LABORER POLE CREW 08/03/[address] Danny Foote DO 07/03/[address] Danny Foote DO 06/22/2020 Laboratory Stephanie DÍAZ RN 04/18/[address] Danny Foote DO 04/11/2020 Laboratory Samia Johnson LABORER POLE CREW 01/18/[address] Danny Foote DO 01/04/2020 Laboratory Samia Johnson LABORER POLE CREW 12/07/2019 Nurse visit Samia Johnson LABORER POLE CREW 07/12/[address] Danny Foote DO 05/11/[address] Danny Foote DO 05/05/2019 Laboratory Hafsa Rand LABORER POLE CREW 02/01/[address] Danny Foote DO 04/11/2018 Hospital Carlos Eid MD 02/05/2018 Office visit Wanda DÍAZ RN 07/18/2017 Office visit April Felder APR N 12/02/2016 Office visit ASAF KYLE 05/08/2016 Office visit April Felder APR N 03/09/2016 Office visit Roxanne Banks LABORER POLE CREW 07/13/2014 Office visit China Saravia LABORER POLE CREW 10/13/2012 Office visit Asaf Bañuelos MD 10/06/2012 Hospital Asaf Bañuelos MD 10/05/2012 [facility] Asaf Bañuelos MD 09/26/2012 [facility] DO
--- OUTSIDE RECORDS SUMMARY | 2020-10-22 11:32 | XMS REPORT ---
Author Author Gilbert Foote Organization [facility] Address [address] [place], [place] [address] Care Team Providers Care Well Logging Captain Mud Analysis Name Role Phone Danny Foote PCP Danny [...] (81 mg) by oral route once daily Qlyojuypwvt-Wroeu-DBY Complex [id number] mg oral tablet 02/01 take 1 tablet [...] 12:00 AM Solu-Medrol, Up to 125 Mg [facility]# [id number] 7-27 Reviewed 12/30/2018 12:00 AM Prostate Cancer [...] Reviewed 07/12/2019 12:00 AM Depo-Medrol 80mg Injection, [facility] Medicare Reviewed 07/12/2019 12:00 AM Decadron 4mg Injection, [facility] Medicare Rev iewed 12/07/2019 12:00 AM INFLUENZA [...] CVX Influenza 12/07/2019 sanofi pasteur PMC FLUZONE [id number] Intramuscular Right Upper Arm 12/07/2019 10/15/2018 135 [...] Prostate cancer screening Dec 30 2018 3:48PM [place] (hard of hearing) Feb 01 2019 3:17PM [...] 2019 11:58AM Hypertension May 11 2019 11:58AM [place] (hard of hearing) May 11 2019 11:58AM [...] 5:30PM Medication management Sep 28 2020 5:30PM HTN (hypertension) Sep 26 2020 11:04AM HLD (hyperlipidemia) Sep 26 2020 11:04AM COPD (chronic obstructive pulmonary disease) Sep 26 2020 11: 04AM Anemia Sep 26 2020 11:04AM Epistaxis, recurrent Sep 26 2020 11:04AM Coronary artery disease Sep 26 2020 11:04AM Payers Insurance Name Company Name Plan Name Plan Number Policy Number [place] Group Number Start Date Medicare RHC Medicare RHC [id number] N/ A [employer] [place] [employer] [id number] N/A Medicare RHC Medicare RHC [id number] N/A Medicare Part A Medicare - Lab/Xray [id number] N/A Medicare RHC Medicare RHC [id number] N/ A Medicare Part B Medicare Of [place] [id number] N/A History of Encounters Visit Date Visit Type Provider 09/26/[address] Danny Foote DO 09/19/2020 Laboratory Samia Johnson AIRCRAFT METALSMITH 08/03/[address] Danny Foote DO 07/03/[address] Danny Foote DO 06/22/2020 Laboratory Stephanie DÍAZ RN 04/18/[address] Danny Foote DO 04/11/2020 Laboratory Samia Johnson AIRCRAFT METALSMITH 01/18/[address] Danny Foote DO 01/04/2020 Laboratory Samia Johnson AIRCRAFT METALSMITH 12/07/2019 Nurse visit Samia Johnson AIRCRAFT METALSMITH 07/12/[address] Danny Foote DO 05/11/[address] Danny Foote DO 05/05/2019 Laboratory Hafsa A. Major AIRCRAFT METALSMITH 02/01/[address] Danny Foote DO 04/11/2018 [facility] Carlos Eid MD 02/05/2018 Office visit Wanda DÍAZ RN 07/18/2017 Office visit April Felder APR N 12/02/2016 Office visit ASAF KYLE 05/08/2016 Office visit April Felder APR N 03/09/2016 Office visit Roxanne Banks AIRCRAFT METALSMITH 07/13/2014 Office visit China Saravia AIRCRAFT METALSMITH 10/13/2012 Office visit Asaf Bañuelos MD 10/06/2012 [facility] Asaf Bañuelos MD 10/05/2012 [facility] Asaf Bañuelos MD 09/26/2012 [facility]
--- NOTE | 2020-10-22 11:59 | Progress Note-Pre Operative ---
Pre-Operative Progress Note H&P Reviewed The H&P was reviewed, patient examined and no changes noted. Date Seen by Provider: Oct 22, 2020 Time Seen by Provider: 12:00 Date H&P Reviewed: Oct 22, 2020 Time H&P Reviewed: 12:00 Pre-Operative Diagnosis: Left Posterior Epistaxis EMILEE RODGERS MD Oct 22, 2020 11:59
--- NOTE | 2020-10-22 12:04 | Progress Note ---
Standard Progress Note Progress Notes/Assess & Plan Date Seen by a Provider: Oct 22, 2020 Time Seen by a Provider: 12:00 Progress/Assessment & Plan VYO-Hrmfh-SFifzpu/Physical cc: Posterior Nosebleed HPI: Patient transferred from [facility] with Posterior Left epistaxis. Nosebleed started lasat night at 1130 and was persistent until transfer. Seen in ER in [place] and the nose packed multiple times Continued to have posterior bleeding and then right sided bleeding. HGB -12.7. Patient has history of epistaxis in past and was cauterized in [place] 1.5 years ago. PMHX: Cardiac Surgey Last ate yesterday evening ALL-sulfa and prednisone Meds: see chart-on one aspirin/day Exam: Nose-packing bilaterally in the nose with saturated pack on the left; No active bleeding seen at this time OP-old blood seen Neck-negative IMP: Acute Left Posterior Epistaxis Rec: 1. PAtient was acute and persistent left posterior epistaxis despite packing. Will proceed to the OR for EUA and cauterization and or packing. Need for overnight stay will be determined after surgeyr performed. 2. home on antibiotics and pain medication 3. hold aspirin for at least 48 hours 4. blood work from [facility] on chart Final Diagnosis Left Posterior Epistaxis EMILEE RODGERS MD Oct 22, 2020 12:04
[2020-10-22] MEDS ORDERED: fentaNYL INJ 100 MCG/2 ML AMP ONE (12:06)
[2020-10-22] MEDS ORDERED: LIDOCAINE PF 2% 5 ML (XYLOCAINE) VIAL ONE (12:06)
[2020-10-22] MEDS ORDERED: proPOfol 200 MG/20 ML (DIPRIVAN) VIAL IV ONE (12:06)
[2020-10-22] MEDS ORDERED: SEVOFLURANE (ULTANE) 15 ML INHAL SOLN ONE ×2 (12:06→13:22)
[2020-10-22] MEDS ORDERED: ROCURONIUM 10 MG/ML 5 ML SYRINGE IV ONE (12:06)
[2020-10-22] MEDS ORDERED: SUCCINYLCHOLINE INJ 100 MG/5 ML SYR/VIAL ONE (12:07)
[2020-10-22] MEDS ORDERED: MUPIROCIN 2% OINT 22 GM (BACTROBAN) TUBE ONE (12:29)
[2020-10-22] MEDS ORDERED: COCAINE HCL 4% 2 ML SYR ONE (12:29)
[2020-10-22] MEDS ORDERED: PHENYLEPHRINE 0.5% NASAL SPR (NEO-SYNEPHRINE) REG ONE (12:29)
[2020-10-22] MEDS ORDERED: LIDOCAINE/EPI 1%-1:100,000 (XYLOCAINE) 20ML ONE (12:30)
[2020-10-22] MEDS ORDERED: SUGAMMADEX 500 MG/5 ML VIAL (BRIDION) IV ONE (12:54)
[2020-10-22] MEDS ORDERED: ceFAZolin INJECTION 1,000 MG ONE (13:16)
--- NOTE | 2020-10-22 13:23 | Progress Note-Post Operative ---
Post-Operative Progess Note Surgeon (s)/Lockstitch Waistband Setter (s) Surgeon EMILEE RODGERS MD Lockstitch Waistband Setter n/a Pre-Operative Diagnosis Left Posterior Epistaxis Post-Operative Diagnosis same Post-Op Procedure Note Date of Procedure: Oct 22, 2020 Name of Procedure Performed: Endoscopic Repair of Left Posterior Epistaxis Description & Findings Description and Findings: n/a Anesthesia Type get Estimated Blood Loss 50cc Packing none. Specimen(s) collected/removed none EMILEE RODGERS MD Oct 22, 2020 13:23
[2020-10-22] MEDS ORDERED: PHENYLEPHRINE 0.5% NASAL SPR (NEO-SYNEPHRINE) REG PRN (13:30)
[2020-10-22] MEDS ORDERED: ONDANSETRON 4 MG/2 ML (SDV) Z0FRAN IVP PRN (13:45)
[2020-10-22] MEDS ORDERED: morphine INJ 10 MG/ML 1ML (SYR OR VIAL) IVP ONE (13:45)
--- NOTE | 2020-10-22 13:50 | Anesthesia-General Post-Op ---
General Patient Condition Mental Status/LOC: Same as Preop Cardiovascular: Satisfactory Nausea/Vomiting: Absent Respiratory: Satisfactory Pain: Controlled Complications: Absent Post Op Complications Complications None Follow Up Care/Instructions Patient Instructions None needed. Anesthesia/Patient Condition Patient Condition Patient is doing well, no complaints, stable vital signs, no apparent adverse anesthesia problems. No complications reported per nursing. D/C home per [facility] Criteria: TORIN Webber CRNA Oct 22, 2020 13:50
[2020-10-22] MEDS: ceFAZolin INJECTION 1,000 MG in WATER (STERILE) FOR INJECTION 10 ML IV SCH ×2 (14:29→21:38)
[2020-10-22] MEDS: D5 1/2 NS W/KCL 20 MEQ/L 1,000 ML IV SCH (14:33)
[2020-10-22] MEDS: HYDROcodone/APAP 5 MG/325 MG (LORTAB) TAB PO PRN (16:07)
--- NOTE | 2020-10-22 16:13 | OPERATIVE REPORT ---
DATE OF SERVICE: 10/22/2020 ENT operative note from [facility]. ROOM: [facility]. SERVICE: ENT. SURGEON: Emilee Tafoya MD ANESTHESIA: General endotracheal. PREOPERATIVE DIAGNOSIS: Left posterior epistaxis. POSTOPERATIVE DIAGNOSIS: Left posterior epistaxis. PROCEDURE: Endoscopic repair of left posterior epistaxis. DESCRIPTION OF PROCEDURE: The patient was brought from the emergency room to the operating room. His identity and procedure were verified. General endotracheal anesthesia was then induced. The patient was draped. The nose was examined. One pack was removed from the right side of the nose and 2 packs were removed from the left. Old blood was suctioned from the right side of the nose posteriorly. On the left side, there was active bright red bleeding present. Using the 0-degree endoscope and the suction of bleeding was localized to the lateral nasal wall near the nasal roof just above the anterior connection or anterior attachment of the middle turbinate. Using suction cautery, this vessel was cauterized. Further cautery was obtained with the needle point cautery to stop the bleeding. Nose was irrigated with saline. All old blood was suctioned out. Neosynephrine pack was placed. Minimal oozing occurred subsequent to this, Surgicel packing soaked in Bactroban was placed in the area of the cauterization. The patient was observed. No further bleeding was present. The patient was then awakened, extubated, and taken to recovery room in stable condition. He tolerated the procedure well. Blood loss at time of surgery was 50 mL. Job ID: [id number] DocumentID: [id number] Dictated Date: 10/22/2020 15:49:18 Resource Recovery Engineer Date: 10/22/2020 16:12:34 Dictated By: EMILEE TAFOYA MD
[2020-10-22] MEDS ORDERED: eZETimibe 10 MG (ZETIA) TABLET PO SCH (21:00)
[2020-10-22] MEDS ORDERED: MONTELUKAST 10 MG (SINGULAIR) TAB PO SCH (21:00)
[2020-10-22] MEDS ORDERED: RT--FLUTICASONE/SALMETEROL 232-14 (AIRDUO RespiCLICK) IH SCH (21:00)
[2020-10-22] MEDS ORDERED: traZODone 50 MG (DESYREL) TAB PO SCH (21:00)
[2020-10-23] MEDS: D5 1/2 NS W/KCL 20 MEQ/L 1,000 ML IV SCH (02:40)
[2020-10-23] MEDS: HYDROcodone/APAP 5 MG/325 MG (LORTAB) TAB PO PRN ×2 (02:40→08:36)
[2020-10-23 03:54] VITALS: BP 127/67
[2020-10-23] MEDS: ceFAZolin INJECTION 1,000 MG in WATER (STERILE) FOR INJECTION 10 ML IV SCH (05:55)
[2020-10-23] MEDS ORDERED: LEVOTHYROXINE 75 MCG (LEVOTHROID) TABLET PO SCH (06:30)
[2020-10-23] MEDS ORDERED: PANTOPRAZOLE 40 MG (PROTONIX) TAB PO SCH (09:00)
[2020-10-23] MEDS ORDERED: LORATADINE (CLARITIN) 10 MG TAB PO SCH (09:00)
== END 2020-10-23 08:40 | disposition home or self-care (01) ==
LOC: EDUNIT# 11:26 → ER 11:29 → SDC 11:52 → 4TH 14:30 → SDC 10-23 08:40
PROVIDERS: ATTEND Otolaryngology Otolaryngology/Facial Plastic Surgery
DX: R04.0 Epistaxis (principal); I10 Essential (primary) hypertension; I25.10 Atherosclerotic heart disease of native coronary artery without angina pectoris; J44.9 Chronic obstructive pulmonary disease, unspecified; K21.9 Gastro-esophageal reflux disease without esophagitis; Z79.899 Other long term (current) drug therapy
CPT/HCPCS: 87635